=== PATIENT | female | born 1995 | race Caucasian/White ===

== ENCOUNTER 2017-08-18 11:13 | Emergency (ER) | payer OTHER ==
--- NOTE | 2017-08-18 11:28 | ER Document Report ---
ED Medical Screen (RME) - General Chief Complaint: Vaginal Bleeding Stated Complaint: VAGINAL BLEEDING,ABDOMINAL PAIN Time Seen by Provider: 08/18/17 11:24 Notes: Patient presents with vaginal bleeding and passing intermittent clots since Monday of this week. Formal ultrasound was performed yesterday, she states showed inconclusive results. She comes to this emergency department for further evaluation and wanting to know if she has a valid . She states that her bleeding is light at this time and denies any pain or concerns for GI vaginal smells or infection. Last menstrual period was approximately July 07, 2017. Discussed with nurse requesting formal ultrasound results from [facility] and beta hCG values that patient states were obtained. Will determine blood type and beta hCG levels for comparison while awaiting formal ultrasound results from outside hospital I have greeted and performed a rapid initial assessment of this patient. A comprehensive ED assessment and evaluation of the patient, analysis of test results and completion of the medical decision making process will be conducted by additional ED providers. PHYSICAL EXAMINATION: GENERAL: Well-appearing, well-nourished and in no acute distress. HEAD: Atraumatic, normocephalic. EYES: Pupils equal round extraocular movements intact, conjunctiva are normal. ENT: Nares patent NECK: Normal range of motion LUNGS: No respiratory distress Musculoskeletal: Normal range of motion NEUROLOGICAL: Normal speech, normal gait. PSYCH: Normal mood, normal affect. SKIN: Warm, Dry, normal turgor, no rashes or lesions noted. TRAVEL OUTSIDE OF THE [place] IN LAST 30 DAYS: No Past Medical History - Social History Chew tobacco use (# tins/day): No Frequency of alcohol use: None Drug Abuse: None Renal/ Medical History: Denies: Hx Peritoneal Dialysis
[2017-08-18 12:24] LABS: ABSOLUTE EOSINOPHILS # (AUTO) 0.2 10^3/uL (0.0-0.6); ABSOLUTE LYMPHOCYTES (AUTO) 2.4 10^3/uL (0.5-4.7); ABSOLUTE MONOCYTES (AUTO) 0.8 10^3/uL (0.1-1.4); ABSOLUTE NEUT (AUTO) 5.4 10^3/uL (1.7-8.2); BASOPHILS % (AUTO) 0.4 % (0-2); EOSINOPHILS % (AUTO) 1.7 % (0-6); HEMATOCRIT 37.7 % (36.0-47.0); HEMOGLOBIN 13.2 g/dL (12.0-15.5); MEAN CORPUSCULAR HEMOGLOBIN 29.1 pg (27.0-33.4); MEAN CORPUSCULAR HGB CONC 34.9 g/dL (32.0-36.0); MEAN CORPUSCULAR VOLUME 83 fl (80-97); MONOCYTES % (AUTO) 8.8 % (3-13); PLATELET COUNT 400 10^3/uL (150-450); RED BLOOD COUNT 4.53 10^6/uL (3.72-5.28); RED CELL DISTRIBUTION WIDTH 12.2 % (11.5-14.0); SEGMENTED NEUTROPHILS % (AUTO) 62.1 % (42-78); TOTAL CELLS COUNTED % (AUTO) 100 %; WHITE BLOOD COUNT 8.7 10^3/uL (4.0-10.5)
[2017-08-18 12:33] LABS: APPEARANCE,URINE CLEAR; BILIRUBIN,URINE NEGATIVE (NEGATIVE); COLOR,URINE YELLOW; GLUCOSE, URINE NEGATIVE (NEGATIVE); KETONES,URINE NEGATIVE (NEGATIVE); LEUKOCYTE ESTERASE,URINE NEGATIVE (NEGATIVE); NITRITE,URINE NEGATIVE (NEGATIVE); PROTEIN,URINE NEGATIVE (NEGATIVE); URINE SPECIFIC GRAVITY 1.024
[2017-08-18 12:40] LABS: ANION GAP 14 (5-19); BLOOD UREA NITROGEN 9 mg/dL (7-20); CALCIUM 9.4 mg/dL (8.4-10.2); CARBON DIOXIDE 23 mmol/L (22-30); CHLORIDE 106 mmol/L (98-107); GLUCOSE 94 mg/dL (75-110); POTASSIUM 4.4 mmol/L (3.6-5.0)
--- NOTE | 2017-08-18 13:03 | RADIOLOGY REPORT (SQ) ---
EXAM DESCRIPTION: U/S OB TRANSVAG W/DOPPLER COMPLETED DATE/TIME: 08/18/2017 12:48 pm REASON FOR STUDY: +preg vag bleed COMPARISON: None. TECHNIQUE: Transvaginal static and realtime grayscale images acquired of the pelvis. Additional ridge cted spectral and color Doppler images recorded. All images stored on PACs. BHCG: Pending. LIMITATIONS: None. FINDINGS: UTERUS: No visualized intrauterine . RIGHT ADNEXA: Ovary not identified. No adnexal free fluid. No adnexal masses. LEFT ADNEXA: Normal ovary with normal vascular flow. No adnexal free fluid. No adnexal masses. FREE FLUID: None. OTHER: No other significant finding. IMPRESSION: NO VISUALIZED INTRA- OR EXTRAUTERINE . bHCG LEVEL NOT AVAILABLE FOR CORRELATION WITH US FINDINGS. ECTOPIC CANNOT BE EXCLUDED. FOLLOW-UP ULTRASOUND AND SERIAL BHCG LEVELS STRONGLY RECOMMENDED TO ACCURATELY ASSESS STATU S. TECHNICAL DOCUMENTATION: JOB ID: [id number] [employer]- All Rights Reserved Reading location - IP/workstation name: [email or web address]
--- NOTE | 2017-08-18 13:30 | ER Document Report ---
ED General - General Chief Complaint: Vaginal Bleeding Stated Complaint: VAGINAL BLEEDING,ABDOMINAL PAIN Time Seen by Provider: 08/18/17 11:24 TRAVEL OUTSIDE OF THE [place] IN LAST 30 DAYS: No - HPI Patient complains to provider of: Vaginal bleeding Notes: Patient coming in for vaginal bleeding. Patient states she was told recently at [facility] that she may be having a miscarriage bleeding continued patient states that her beta level 24 hours ago was approximately 40 because of continued bleeding patient came into the ER today for further evaluation. Patient resting comfortably upon my evaluation denies any other medical issues denies fever chills nausea vomiting diarrhea. - Related Data Allergies/Adverse Reactions: No Known Allergies Allergy (Unverified 08/18/17 11:31) Past Medical History - Social History Smoking Status: Never Smoker Chew tobacco use (# tins/day): No Frequency of alcohol use: None Drug Abuse: None Family History: Reviewed & Not Pertinent Patient has suicidal ideation: No Patient has homicidal ideation: No Renal/ Medical History: Denies: Hx Peritoneal Dialysis Review of Systems - Review of Systems Constitutional: No symptoms reported EENT: No symptoms reported Cardiovascular: No symptoms reported Respiratory: No symptoms reported Gastrointestinal: No symptoms reported Genitourinary: No symptoms reported Female Genitourinary: Vaginal bleeding Musculoskeletal: No symptoms reported Skin: No symptoms reported Hematologic/Lymphatic: No symptoms reported Neurological/Psychological: No symptoms reported Physical Exam - Vital signs Vitals: Temp Pulse Resp BP Pulse Ox 98.4 F 83 18 113/63 99 08/18/17 11:25 08/18/17 11:25 08/18/17 11:25 08/18/17 11:25 08/18/17 11:25 Interpretation: Normal - General General appearance: Appears well, Alert - HEENT Head: Normocephalic, Atraumatic Eyes: Normal Pupils: PERRL - Respiratory Respiratory status: No respiratory distress Chest status: Nontender Breath sounds: Normal Chest palpation: Normal - Cardiovascular Rhythm: Regular Heart sounds: Normal auscultation Murmur: No - Abdominal Inspection: Normal Distension: No distension Bowel sounds: Normal Tenderness: Nontender Organomegaly: No organomegaly - Back Back: Normal, Nontender - Extremities General upper extremity: Normal inspection, Nontender, Normal color, Normal ROM , Normal temperature General lower extremity: Normal inspection, Nontender, Normal color, Normal ROM , Normal temperature, Normal weight bearing. No: Jorge's sign - Neurological Neuro grossly intact: Yes Cognition: Normal Orientation: AAOx4 Brandyn Coma Scale Eye Opening: Spontaneous Brandyn Coma Scale Verbal: Oriented Moon Coma Scale Motor: Obeys Commands Moon Coma Scale Total: 15 Speech: Normal Motor strength normal: LUE, RUE, LLE, RLE Sensory: Normal - Psychological Associated symptoms: Normal affect, Normal mood - Skin Skin Temperature: Warm Skin Moisture: Dry Skin Color: Normal Course - Re-evaluation Re-evalutation: 08/18/17 15:07 Beta is a 20 today with significant decrease from the patient's recent testing of 40. More likely patient is having a miscarriage. Will give the patient Bentyl for her abdominal cramps Ultram for pain recommend patient take Tylenol Motrin for other pain and follow-up in approximately 1 week to make sure there is resolution of her quant level to 0. - Vital Signs Vital signs: Temp Pulse Resp BP Pulse Ox 98.2 F 86 18 115/72 100 08/18/17 14:02 08/18/17 14:02 08/18/17 14:02 08/18/17 14:02 08/18/17 14:02 - Laboratory Result Diagrams: 08/18/17 11:56 08/18/17 11:56 Laboratory results interpreted by me: 08/18/17 08/18/17 11:56 11:56 Beta HCG, Quant 20.95 H Urine Urobilinogen 2.0 H Urine Ascorbic Acid 40 H Discharge - Discharge Clinical Impression: Miscarriage Condition: Good Disposition: HOME, SELF-CARE Instructions: Miscarriage ([facility]), Ob-Community Placement Worker Doctors Additional Instructions: Your beta hCG level today is 20. This seems to be decreasing from your beta hCG level reported at 40. this is consistent with a miscarriage. Please take the Bentyl for crampy abdominal pain. SHe may take the Ultram for severe pain. You may also take Tylenol and Motrin for pain control. Observe pelvic rest nothing inside the vagina including no toys no sex no tampons. Follow-up in 1 week for repeat beta-hCG testing. He may have this performed at her local [facility] office or he may return to the ER and go to outpatient laboratory testing to have this performed. For nausea and vomiting during I recomment: Start with 10-12.5 mg of pyridoxine (vitamin B6) three times a day for 2 days. If not fully effective, Increase to 12.5 mg of pyridoxine four times a day for 2 days. If not fully effective, Increase to 25 mg of pyridoxine three times a day for 2 days. If not fully effective, Continue 25 mg pyridoxine 3 times a day, and add 12.5 mg of doxylamine before bedtime each day for 2 days. If not fully effective, Continue 25 mg pyridoxine 3 times a day, and take 12.5 mg of doxylamine twice a day. If not fully effective, Continue 25 mg pyridoxine 3 times a day, and take 12.5 mg of doxylamine three times a day. If not fully effective, Continue 25 mg pyridoxine 3 times a day, and 12.5 mg of doxylamine 3 times a day , while adding Emetrol, one to two tablespoons (15-30 cc) taken once or twice a day as needed. (Emetrol is an [id number]-[id number] mixture of sugar syrups and phosphoric acid [phosphorylated carbohydrate solution]) that acts by soothing the actual wall of the gastrointestinal tract). If not fully effective, Consult with your doctor. Prescriptions: Dicyclomine HCl [Bentyl 20 mg Tablet] 20 mg PO QID #30 tablet Tramadol HCl [Ultram] 50 mg PO TID #20 tablet Forms: Follow-Up Laboratory Testing, Return to Work
[2017-08-18 14:09] VITALS: BP 115/72
== END 2017-08-18 14:09 | disposition home or self-care (01) ==
LOC: ER 11:13
DX: O03.9 Complete or unspecified spontaneous abortion without complication (principal)
CPT/HCPCS: 36415; 76817; 80048; 81001; 84702; 85025; 86900; 86901; 93976; 99284

== ENCOUNTER 2019-12-31 16:40 | Outpatient (CLI) | payer OTHER ==
[2019-12-31 17:42] LABS: APPEARANCE,URINE SLIGHTLY-CLOUDY; BILIRUBIN,URINE NEGATIVE (NEGATIVE); COLOR,URINE YELLOW; GLUCOSE, URINE NEGATIVE (NEGATIVE); KETONES,URINE NEGATIVE (NEGATIVE); LEUKOCYTE ESTERASE,URINE MODERATE (NEGATIVE); NITRITE,URINE NEGATIVE (NEGATIVE); PROTEIN,URINE 30 mg/dL (NEGATIVE)
[2019-12-31 18:03] LABS: URINE AMPHETAMINES SCREEN NEGATIVE; URINE BARBITURATES SCREEN NEGATIVE; URINE BENZODIAZEPINES SCREEN NEGATIVE; URINE COCAINE SCREEN NEGATIVE; URINE MARIJUANA (THC) SCREEN NEGATIVE; URINE METHADONE SCREEN NEGATIVE; URINE PHENCYCLIDINE SCREEN NEGATIVE
== END 2019-12-31 17:32 | disposition home or self-care (01) ==
LOC: LC 16:40
PROVIDERS: ATTEND Obstetrics & Gynecology
DX: O36.8130 Decreased fetal movements, third trimester, not applicable or unspecified (principal); Z88.6 Allergy status to analgesic agent; Z91.040 Latex allergy status; Z3A.38 38 weeks gestation of pregnancy
CPT/HCPCS: 59025; 80307; 81001

== ENCOUNTER 2020-01-13 19:01 | Inpatient (IN) | payer OTHER ==
[2020-01-13] MEDS ORDERED: MAG HYDROX/AL HYDROX/SIMETH SUSP 30 ML UDCUP PO PRN (19:19)
[2020-01-13] MEDS ORDERED: RINGERS SOLUTION,LACTATED 1,000 ML IV PRN (19:19)
[2020-01-13] MEDS ORDERED: OXYTOCIN/0.9 % SODIUM CHLORIDE 30 UNIT/500 ML RTUINJ IV PRN (19:19)
[2020-01-13] MEDS ORDERED: OXYTOCIN 10 UNIT/ML VIAL ONE (19:19)
[2020-01-13] MEDS ORDERED: OXYTOCIN/0.9 % SODIUM CHLORIDE 30 UNIT/500 ML RTUINJ ONE (19:19)
[2020-01-13] MEDS ORDERED: ZOLPIDEM TARTRATE 5 MG TABLET PO PRN (19:19)
[2020-01-13] MEDS ORDERED: MISOPROSTOL 0.2 MG TABLET ONE ×2 (19:19→19:20)
[2020-01-13] MEDS ORDERED: ACETAMINOPHEN 325 MG TABLET PO PRN (19:19)
[2020-01-13] MEDS ORDERED: RINGERS SOLUTION,LACTATED 300 ML IV ONE (19:19)
[2020-01-13] MEDS ORDERED: LIDOCAINE 1% INJ-PF (10 MG/ML) 30 ML SDV ONE (19:19)
[2020-01-13] MEDS ORDERED: DINOPROSTONE 10 MG VAGINAL INSERT.SR PV ONE (19:19)
[2020-01-13 19:40] LABS: APPEARANCE,URINE CLOUDY; BILIRUBIN,URINE NEGATIVE (NEGATIVE); COLOR,URINE YELLOW; GLUCOSE, URINE NEGATIVE (NEGATIVE); KETONES,URINE NEGATIVE (NEGATIVE); LEUKOCYTE ESTERASE,URINE SMALL (NEGATIVE); NITRITE,URINE NEGATIVE (NEGATIVE); PROTEIN,URINE 100 mg/dL (NEGATIVE); URINE SPECIFIC GRAVITY 1.028; UROBILINOGEN,URINE NEGATIVE mg/dL (<2.0)
[2020-01-13 20:05] LABS: ABSOLUTE EOSINOPHILS # (AUTO) 0.1 10^3/uL (0.0-0.6); ABSOLUTE LYMPHOCYTES (AUTO) 1.8 10^3/uL (0.5-4.7); ABSOLUTE MONOCYTES (AUTO) 0.7 10^3/uL (0.1-1.4); ABSOLUTE NEUT (AUTO) 7.6 10^3/uL (1.7-8.2); BASOPHILS % (AUTO) 0.4 % (0-2); EOSINOPHILS % (AUTO) 0.9 % (0-6); HEMATOCRIT 37.1 % (36.0-47.0); HEMOGLOBIN 12.9 g/dL (12.0-15.5); LYMPHOCYTES % (AUTO) 17.7 % (13-45); MEAN CORPUSCULAR HEMOGLOBIN 28.4 pg (27.0-33.4); MEAN CORPUSCULAR HGB CONC 34.7 g/dL (32.0-36.0); MEAN CORPUSCULAR VOLUME 82 fl (80-97); MONOCYTES % (AUTO) 6.9 % (3-13); PLATELET COUNT 305 10^3/uL (150-450); RED BLOOD COUNT 4.53 10^6/uL (3.72-5.28); RED CELL DISTRIBUTION WIDTH 15.6 % (11.5-14.0); SEGMENTED NEUTROPHILS % (AUTO) 74.1 % (42-78); TOTAL CELLS COUNTED % (AUTO) 100 %; WHITE BLOOD COUNT 10.2 10^3/uL (4.0-10.5)
[2020-01-13] MEDS ORDERED: ZOLPIDEM TARTRATE 5 MG TABLET ONE (20:23)
[2020-01-13] MEDS ORDERED: DINOPROSTONE 10 MG VAGINAL INSERT.SR ONE (20:23)
[2020-01-13 21:11] LABS: URINE AMPHETAMINES SCREEN NEGATIVE; URINE BARBITURATES SCREEN NEGATIVE; URINE BENZODIAZEPINES SCREEN NEGATIVE; URINE COCAINE SCREEN NEGATIVE; URINE MARIJUANA (THC) SCREEN NEGATIVE; URINE METHADONE SCREEN NEGATIVE; URINE PHENCYCLIDINE SCREEN NEGATIVE
[2020-01-13] MEDS ORDERED: ZOLPIDEM TARTRATE 5 MG TABLET PO ONE (21:41)
[2020-01-13] MEDS ORDERED: ONDANSETRON HCL INJ/PF 4 MG/2 ML SDV ONE (21:56)
[2020-01-13] MEDS ORDERED: ONDANSETRON HCL INJ/PF 4 MG/2 ML SDV IV ONE (22:00)
[2020-01-14] MEDS ORDERED: FENTANYL/BUPIVACAINE/NS/PF 300 MCG/150 ML RTUINJ EPI ONE (00:40)
[2020-01-14] MEDS ORDERED: ROPIVACAINE HCL 0.2% INJ/PF (2 MG/ML) 20 ML SDV ONE (00:40)
[2020-01-14] MEDS ORDERED: EPHEDRINE SULFATE INJ 50 MG/1 ML AMPULE ONE (00:40)
--- NOTE | 2020-01-14 06:00 | Admission Physical ---
Datetime Report Generated by CPN: 01/14/2020 05:59 CURRENT ADMISSION Chief Complaint: Scheduled Induction of Labor Indication for Induction: Post Dates Admit Impression : Postterm, Intrauterine ; Induction of Labor Admit Plan: Admit to Unit; Initiate Labor Induction Protocol ALLERGIES Medication Allergies: Yes Medication Allergies: hydrocodone (01/13/2020); acetaminophen (01/13/2020) Latex: No Latex Allergies OBSTETRICAL HISTORY EDC: 01/09/2020 00:00 : 2 Para: 0 Term: 0 : 0 SAB: 1 IAB: 0 Ectopic: 0 Livin Cesareans: 0 VBACs: 0 Multiple Births: 0 Gestational Diabetes: No Rh Sensitization: No Incompetent Cervix: No JUVENAL: No Infertility: No ART Treatment: No Uterine Anomaly: No IUGR: No Hx Previous C/S: No Macrosomia: No Hx Loss/Stillborn: No PIH: No Hx : No Placenta Previa/Abruption: No Depression/PP Depression: No PTL/PROM: No Post Hemorrhage: No Current Procedures: Ultrasound; NST Obstetrical History Comments: 2017, SAB G2- current SEE RECORDS Alcohol: No Marijuana : No Cocaine: No Other Illicit Drugs: No Cigarettes: Former Smoker. [id number] MEDICAL HISTORY Diabetes: No Blood Transfusion: No Pulmonary Disease (Asthma, TB): No Breast Disease: No Hypertension: No Field Project Manager Surgery: No Heart Disease: No Hosp/Surgery: Yes Autoimmune Disorder: No Anesthetic Complications: No Kidney Disease: No Abnormal Pap Smear: No Neuro/Epilepsy: No Psychiatric Disorders: No Other Medical Diseases: No Hepatitis/Liver Disease: No Significant Family History: No Varicosities/Phlebitis: No Trauma/Violence : No Thyroid Dysfunction: No Medical History Comments: tubes in ears in childhood INFECTIOUS HISTORY Gonorrhea: No Genital Herpes: No Chlamydia: No Tuberculosis: No Syphilis: No Hepatitis: No HIV/AIDS Exposure: No Rash or Viral Illness: No HPV: No PHYSICAL EXAM General: Normal HEENT: Normal Neurologic: Normal Thyroid: Normal Heart: Normal Lungs: Normal Breast: Normal Back: Normal Abdomen: Normal Genitourinary Exam: Normal Extremities: Normal DTRs: Normal Pelvic Type: Adequate Vital Signs: Reviewed VAGINAL EXAM Dilatation: 7 Effacement: 90 Station: -1 MEMBRANES Pooling: Negative Membranes: Intact FETUS A EGA: 40.5 Monitoring: External US FHR- Baseline: 120 Variability: Minimal - Undetectable to <=5bpm Accelerations: 10X10 Decelerations: None FHR Category: Category II Estimated Weight (gm): 3539 Presentation: Vertex Admit Comment: patient laboring from Cervidil placement and went to 7 cm @ 345 this AM. Has epidural now. will proceed with ROM and FSE placement PLANS FOR LABOR AND DELIVERY Labor and Delivery: None Pain Management: Epidural Feeding Preference: Breast Benefit of Breast Feed Discussed: Yes Circumcision: Yes INFORMED CONSENT Signature: with User ID: [email or web address]
--- NOTE | 2020-01-14 08:21 | L&D Progress Notes ---
PROGRESS NOTES Datetime Report Generated by CPN: 01/14/2020 08:21 PROGRESS NOTE Impression: Normal Progression of Labor Procedures: Sterile Vag Exam Plan: Continue Present Management; Anticipate Vaginal Delivery Plan Other: position changes encouraged Vital Signs : Reviewed; Within Normal Limits Comment: Assuming care of patient. IOL at 41 wks. s/p cervidil overnight. Pt comfortable. VE anterior lip/ -1. Feels OP. Encourage position changes and will labor down until making further descent. GBS negative. Attending MD is Dr Stoddard today VAGINAL EXAM Dilatation: 7 Effacement: 90 Station: -1 LAST VAGINAL EXAM-NURSING Nursing Exam Dilitation: anterior lip Nursing Exam Effacement: 100 Nursing Exam Station: 0 MEMBRANES Pooling: Negative Membranes: Intact FETUS A FHR - Baseline: 125 Monitoring: External US Variability: Moderate 6-25bpm Accelerations: Absent Decelerations: None : 40.5 Estimated Weight (gm): 3539 Presentation: Vertex SIGNATURE SIGNATURE: [id number];13,[id number] Assignment: Melanie Stoddard MD Signature: with User ID: [email or web address] : with User ID: [email or web address]
[2020-01-14] MEDS ORDERED: PSEUDOEPHEDRINE HCL 30 MG TABLET PO PRN (10:29)
[2020-01-14] MEDS ORDERED: DIBUCAINE 1% OINTMENT 28 GM TP PRN (10:29)
[2020-01-14] MEDS ORDERED: PROMETHAZINE HCL INJ 25 MG/1 ML VIAL IV PRN (10:29)
[2020-01-14] MEDS ORDERED: NA PHOS,M-B/NA PHOS,DI-BA (ADULT) 133 ML ENEMA PR PRN (10:29)
[2020-01-14] MEDS ORDERED: MAGNESIUM HYDROXIDE SUSP 30 ML UDCUP PO PRN (10:29)
[2020-01-14] MEDS ORDERED: OXYTOCIN/0.9 % SODIUM CHLORIDE 30 UNIT/500 ML RTUINJ IV PRN (10:29)
[2020-01-14] MEDS ORDERED: PROMETHAZINE HCL 25 MG TABLET PO PRN (10:29)
[2020-01-14] MEDS ORDERED: MEASLES,MUMPS&RUBELLA VACC/PF 0.5 ML VIAL SUBCUT PRN (10:29)
[2020-01-14] MEDS ORDERED: GLYCERIN/WITCH HAZEL LEAF 1 EACH MED..WIPE TP PRN (10:29)
[2020-01-14] MEDS ORDERED: BENZOCAINE/MENTHOL AEROSOL SPRAY 56 ML TOP PRN (10:29)
[2020-01-14] MEDS ORDERED: PROMETHAZINE HCL 25 MG SUPP.RECT PR PRN (10:29)
[2020-01-14] MEDS ORDERED: DIPHENHYDRAMINE HCL 25 MG CAPSULE PO PRN (10:29)
[2020-01-14] MEDS ORDERED: DIPH/PERTUSS(ACELL)/TETANUS VAC/PF 0.5 ML SYR (>=10YO) IM PRN (10:29)
--- NOTE | 2020-01-14 11:09 | Delivery Summary ---
Del Sum A-C Datetime Report Generated by CPN: 01/14/2020 11:09 DELIVERY PERSONNEL DELIVERY PERSONNEL: [id number] Nurse Director Of Home Care Hospice Certified:: Nieves Mccullough CNM Labor and Delivery Nurse:: Krystin Price RNresolution agent Nurse:: Sharee Vegas RN Nursery Nurse:: Hayde Petersen RN Nursery Nurse:: Paula Montoya RN Cargo Service Agent/OSORIO: Kate Landon CNA II MATERNAL INFORMATION Delivery Anesthesia: Epidural Medications After Delivery: Pitocin 30 Units in 500ml NS/D5W Delivery QBL: 125 Maternal Complications: None Provider Comments: of VMI, delivered OA, then to MYRNA. vigorous and crying, placed on pts abdoman in stable condition. Cord around baby's ankle noted. FSE fell off spontaneously at delivery. Bulb suctioned. Cord clamped and cut after one minute. Cord blood collected. Placenta S/C/I, IV Pitocin infusing. ff w/ decreased lochia. 1st degree laceration repaired. Mother and baby in stable condition. Apgars 8,9. QBL 125 ml. LABOR SUMMARY EDC: 01/09/2020 00:00 No. Babies in Womb: 1 Attempted: No Labor Anesthesia: Epidural LABOR INFORMATION Reason for Induction: Post Dates Onset of Labor: 01/13/2020 22:05 Complete Dilatation: 01/14/2020 09:13 Cervical Ripening Agents: Cervidil Oxytocin: N/A Group B Beta Strep: negative (Annotations: Data stored by CPN on behalf of user) Antibiotics # of Doses: n/a Name of Antibiotic Given: n/a Steroids Given: None Reason Steroids Not Administered: Not Applicable MEMBRANES Membranes Rupture Method: Artificial Rupture of Membranes: 01/14/2020 06:00 Length of Rupture (hr): 4.17 Amniotic Fluid Color: Clear Amniotic Fluid Amount: Scant Amniotic Fluid Odor: Normal STAGES OF LABOR Stage 1 hr: 11 Stage 1 min: 8 Stage 2 hr: 0 Stage 2 min: 57 Stage 3 hr: 0 Stage 3 min: 4 Total Time in Labor hr: 12 Total Time in Labor min: 9 VAGINAL DELIVERY Episiotomy: None Laceration #1: Vaginal Laceration Extension #1: First Degree Laceration Repair: Yes Laceration Repair Note: 1st degree vaginal repaired in the usual fashion with 3.0 vicryl under epidural anesthesia Sponge Count Correct: Yes Sharps Count Correct: Yes CSECTION DELIVERY Primary Indication: N/A Secondary Indication: N/A CSection Incidence: N/A Labor: N/A Elective: N/A CSection Incision: N/A BABY A INFORMATION Delivery Date/Time: 01/14/2020 10:10 Method of Delivery: Vaginal Nurse Controlled Delivery: No Born in Route : No : N/A Forceps: N/A Vacuum Extraction: N/A Shoulder Dystocia : No PRESENTATION/POSITION BABY A Presentation: Cephalic Cephalic Presentation: Vertex Vertex Position: Left Occipital Anterior Breech Presentation: N/A PLACENTA INFORMATION BABY A Placenta Delivery Time : 01/14/2020 10:14 Placenta Method of Delivery: Spontaneous Placenta Status: Delivered SCORES BABY A Heart Rate 1 min: >100 bpm Resp Effort 1 min: Good Cry Reflex Irritability 1 min: Cough or Sneeze or Pulls Away Muscle Tone 1 min: Active Motion Color 1 min: Blue/Pale Resuscitation Effort 1 min: Tactile Stimulation SCORE 1 MIN: 8 Heart Rate 5 min: >100 bpm Resp Effort 5 min: Good Cry Reflex Irritability 5 min: Cough or Sneeze or Pulls Away Muscle Tone 5 min: Active Motion Color 5 min: Body Commercial Point, Extremities Blue SCORE 5 MIN: 9 INFANT INFORMATION BABY A Gestational Age at Delivery: 40.5 Gestational Status: Full Term- 39- 40.6 Weeks Outcome : Liveborn Condition : Stable Infant Sex: Male IDENTIFICATION BABY A Infant Verification Date/Time: 01/14/2020 10:23 ID Band Number: [id number] Mother's Name Verified: Yes Infant RN Verifying : MMobley,RN Additional Verifying Personnel: Tarasshine,CNA2 WEIGHT/LENGTH BABY A Birthweight (gm): 3750 Weight (lb): 8 Weight (oz): 4 Length (in): 20.50 Infant Length (cm): 52.07 CORD INFORMATION BABY A No. Cord Vessels: 3 Nuchal Cord : N/A Cord Blood Taken: Yes-For Eval (Mom's Blood Type - or O+) Suction: Mouth ASSESSMENT BABY A Complications: None Physical Findings at Delivery: Within Normal Limits Respirations: Appears Normal Skin to Skin: Yes Skin to Skin Time (min): 30 Real Estate Director/ALS Called : No Infant Care By: Hayde Petersen RN Transferred To: [facility] BABY B INFORMATION : N/A SIGNATURES Assignment: Melanie Stoddard MD Signature: with User ID: Ovidio : with User ID: [email or web address]
--- NOTE | 2020-01-14 11:09 | Birth Certificate Data ---
Cert Data Datetime Report Generated by CPFinn: 01/14/2020 11:09 CERTIFICATE DATA 47a. Care: Yes (12/31/2019 17:00:KHALIF Martinez) 47b. Date of First Visit: 05/20/2019 00:00 (12/31/2019 17:00:KHALIF Martinez) 47c. Date of Last Visit: 01/09/2020 00:00 (12/31/2019 17:00:KHALIF Martinez) 47d. Number of Visits: 14 (12/31/2019 17:00:KHALIF Martinez) 48a. Number of Prev Live Births: 0 (12/31/2019 17:00:KHALIF Martinez) 48b. Now Livin (12/31/2019 17:00:Krystin Price RN) 48c. Live Births Now : 0 (12/31/2019 17:00:QS system process) 48e. Losses: 1 (12/31/2019 17:00:KHALIF Martinez) 48f. Date of Last Preg Loss: 07/30/2017 00:00 (12/31/2019 17:00:Marlene Camp, RNC) RISK FACTORS IN THIS 49a. Diabetes: No (12/31/2019 17:00:Morelia Gallegos RN) 49b. Hypertension: No (12/31/2019 17:00:Morelia Gallegos RN) 49c. Previous Births: 0 (12/31/2019 17:00:Krystin Price RN) 49d. Stillborns: No (12/31/2019 17:00:Morelia Gallegos RN) 49d. IUGR: No (12/31/2019 17:00:Morelia Gallegos RN) 49e. Infertility Treatment: No (12/31/2019 17:00:Morelia Gallegos RN) 49f. Previous Cesareans: 0 (12/31/2019 17:00:Marlene Camp, RNC) Mother's Height 50b. Height Inches: 63 (01/14/2020 10:32:QS system process) Mother's Weight 51a. Pre- Weight (lbs): 213 (12/31/2019 17:00:Morelia Gallegos RN) 51b. Weight at Delivery (lbs): 229 (01/14/2020 10:32:QS system process) Infections Present/Treated 53a. Gonorrhea: No (12/31/2019 17:00:Morelia Gallegos RN) Results this Hospital Visit : Negative (12/31/2019 17:00:Morelia Gallegos RN) 53b. Syphilis: No (12/31/2019 17:00:Morelia Gallegos RN) Results this Hospital Visit: NONREACTIVE (01/13/2020 19:49:QS system process) 53c. Chlamydia: No (12/31/2019 17:00:Morelia Gallegos RN) Results this Hospital Visit: Negative (12/31/2019 17:00:Morelia Gallegos RN) 53d. Hepatitis B: No (12/31/2019 17:00:Morelia Gallegos RN) Results this Hospital Visit: Negative (12/31/2019 17:00:Morelia Gallegos RN) 53e. Hepatitis C: Negative (12/31/2019 17:00:Morelia Gallegos RN) 53h. Mother Tested for HBsAG: Yes (12/31/2019 17:00:Morelia Gallegos RN) 53i. Date Tested: 05/20/2019 00:00 (12/31/2019 17:00:Morelia Gallegos RN) 53j. Test Result: Negative (12/31/2019 17:00:Morelia Gallegos RN) Obstetric Procedures 54a, b, c. Obstetric Procedures: Ultrasound; NST (12/31/2019 17:00:Morelia Gallegos RN) Onset of Labor 56a. PROM >12 Hrs: 4.17 (12/31/2019 17:00:QS system process) 56b. Precipitous Labor <3 Hrs: 12 (12/31/2019 17:00:QS system process) 56c. Prolonged Labor > 20 Hrs: 12 (12/31/2019 17:00:QS system process) 57a. Induction of Labor: N/A (12/31/2019 17:00:Morelia Gallegos RN) 57a. Induction of Labor: Cervidil (01/13/2020 20:37:Morelia Gallegos RN) 57c. Non-Vertex Presentation A: Vertex (12/31/2019 17:00:Krystin Price RN) 57d. Steroids - Lung Mat: None (12/31/2019 17:00:Morelia Gallegos RN) 57d. Steroids - Lung Mat: Not Applicable (12/31/2019 17:00:Morelia Gallegos RN) 57g. Moderate/Heavy Meconium: Clear (01/14/2020 06:00:Morelia Gallegos RN) 57h. Intolerance of Labor: N/A (12/31/2019 17:00:Krystin Price RN) : N/A (12/31/2019 17:00:Krystin Price RN) 57i. Epidural/Spinal Anesthesia: Epidural (12/31/2019 17:00:Morelia Gallegos RN) Method of Delivery 58a. Forceps - Unsuccessful A: N/A (12/31/2019 17:00:Krystin Price RN) 58b. Vacuum - Unsuccessful A: N/A (12/31/2019 17:00:Krystin Price RN) 58c. Presentation at 58c. Presentation at - A : Vertex (12/31/2019 17:00:Krystin Price RN) 58c. Presentation at - A : N/A (12/31/2019 17:00:Krystin Price RN) 58c. Presentation at - A : Cephalic (12/31/2019 17:00:Morelia Gallegos RN) Final Route and Method of Del 58d. Baby A Route/Delivery: Vaginal (01/14/2020 10:10:Jennifer Jackson RN) 58e. Trial of Labor Attempted: No (12/31/2019 17:00:Morelia Gallegos RN) 58e. Trial of Labor Attempted A: N/A (12/31/2019 17:00:Morelia Gallegos RN) 58e. Trial of Labor Attempted B: N/A (12/31/2019 17:00:Morelia Gallegos RN) Maternal Morbidity 59b. 3rd or 4th Degree Lacs: Vaginal (12/31/2019 17:00:Nieves Mccullough CNM) 59b. 3rd or 4th Degree Lacs: First Degree (12/31/2019 17:00:Krystin Price RN) Birthweight Baby A: 3750 (12/31/2019 17:00:Krystin Price RN) 60a. Pounds : 8 (12/31/2019 17:00:QS system process) 60b. Ounces: 4 (12/31/2019 17:00:QS system process) 61. GA at Delivery Baby A: 40.5 (12/31/2019 17:00:Morelia Gallegos, RN) : Full Term- 39- 40.6 Weeks (12/31/2019 17:00:QS system process) 62a. 5 Minute Baby A: 9 (12/31/2019 17:00:QS system process)
[2020-01-14] MEDS ORDERED: IBUPROFEN 800 MG TABLET PO SCH (11:30)
[2020-01-14] MEDS: IBUPROFEN 800 MG TABLET PO SCH ×2 (15:31→21:50)
[2020-01-14] MEDS: DOCUSATE SODIUM 100 MG CAPSULE PO SCH (18:03)
[2020-01-14] MEDS: FAMOTIDINE 20 MG TABLET PO SCH (21:50)
[2020-01-15] MEDS: IBUPROFEN 800 MG TABLET PO SCH ×3 (06:11→22:27)
[2020-01-15 06:33] LABS: HEMATOCRIT 32.2 % (36.0-47.0); HEMOGLOBIN 11.3 g/dL (12.0-15.5); MEAN CORPUSCULAR HEMOGLOBIN 28.7 pg (27.0-33.4); MEAN CORPUSCULAR VOLUME 82 fl (80-97); PLATELET COUNT 238 10^3/uL (150-450); RED BLOOD COUNT 3.93 10^6/uL (3.72-5.28); RED CELL DISTRIBUTION WIDTH 15.4 % (11.5-14.0)
[2020-01-15] MEDS: FERROUS SULFATE 325 MG TABLET PO SCH (09:58)
[2020-01-15] MEDS: SENNOSIDES/DOCUSATE 8.6-50 MG 1 EACH TABLET PO SCH (09:58)
[2020-01-15] MEDS: DOCUSATE SODIUM 100 MG CAPSULE PO SCH ×2 (09:58→17:34)
[2020-01-15] MEDS: FAMOTIDINE 20 MG TABLET PO SCH ×2 (09:58→22:27)
[2020-01-15] MEDS ORDERED: PRENATAL VITAMIN W DHA CAPSULE PO SCH (10:00)
--- NOTE | 2020-01-15 14:59 | PDOC PROGRESS REPORT ---
Subjective-OB Progress Note for:: 01/15/20 Subjective: 24yo s/p ppd 1. Ambulating, voiding and without difficulty. NO concerns today, reports pain well controlled with medication. Physical Exam (OB) Vital Signs: Temp Pulse Resp BP Pulse Ox 98.1 F 76 18 130/78 H 100 01/15/20 08:45 01/15/20 08:00 01/15/20 08:00 01/15/20 08:00 01/15/20 08:00 Intake & Output 01/14/20 01/15/20 01/16/20 06:59 06:59 06:59 Intake Total 1200 100 Balance 1200 100 Weight 103.7 kg - General General Appearance: Appears well In distress: None - PIH/Pre-Eclampsia DTR's: 1 + Clonus: Negative Headache: Absent Epigastric Pain: No Visual Changes: No - Maternal Morbidity 59. Maternal Morbidity (serious complications experinced by the mother associated with labor and delivery: None of the above - Episiotomy/Laceration Site Condition: Well Approximated - Lochia Lochia Amount: Small 10-25 ml Lochia Color: Serosa/Brown - Abdomen Description: Firm Hernia Present: No Fundal Description: Firm Fundal Height: u/u - u/2 - Respiratory Respiratory Status: No respiratory distress - Extremities Upper extremity: Normal inspection Lower extremities: Normal inspection - Neurological Cognition: Normal Orientation: AAOx4 - Psychological Associated symptoms: Normal affect, Normal mood Objective-Diagnostic Laboratory: 01/15/20 06:17 01/15/20 06:17 WBC 11.0 H RBC 3.93 Hgb 11.3 L Hct 32.2 L MCV 82 MCH 28.7 MCHC 35.0 RDW 15.4 H Plt Count 238 Assessment and Plan(PN) - Assessment and Plan (1) Obstetric vaginal laceration Qualifiers: Perineal laceration presence: without perineal laceration Qualified Code(s): O71.4 - Obstetric high vaginal laceration alone Is this a current diagnosis for this admission?: Yes Plan: continue to monitor for s/s of infection (2) Encounter for induction of labor Is this a current diagnosis for this admission?: Yes Plan: delivered (3) (normal spontaneous vaginal delivery) Is this a current diagnosis for this admission?: Yes Plan: routine pp care - Time Spent with Patient Time with patient: Less than 15 minutes Medications reviewed and adjusted accordingly: Yes - Disposition Anticipated Discharge Disposition: Home, Self Care Anticipated Discharge Timeframe: within 24 hours
[2020-01-16] MEDS: IBUPROFEN 800 MG TABLET PO SCH ×2 (05:52→14:02)
[2020-01-16 08:16] VITALS: BP 101/56
--- NOTE | 2020-01-16 09:20 | PDOC DISCHARGE SUMMARY ---
Impression - Admit/DC Date/PCP Admission Date/Primary Care Provider: 01/13/20 19:01 NAGA DEVI MD Discharge Date: 01/16/20 - Discharge Diagnosis (1) 41 weeks gestation of Is this a current diagnosis for this admission?: Yes (2) Encounter for induction of labor Is this a current diagnosis for this admission?: Yes (3) (normal spontaneous vaginal delivery) Is this a current diagnosis for this admission?: Yes (4) Obstetric vaginal laceration Is this a current diagnosis for this admission?: Yes - Additional Information Resuscitation Status: Full Code Discharge Diet: Regular Discharge Activity: Balance Activity w/Rest, Pelvic Rest Referrals: NAGA DEVI MD [Primary Care Provider] - Prescriptions: Ibuprofen [Motrin 800 mg Tablet] 800 mg PO Q8HP PRN #60 tablet PRN Reason: Home Medications: Vit Calc,Iron,Folic [ Vitamins] 1 tab PO DAILY 08/18/17 Ibuprofen [Motrin 800 mg Tablet] 800 mg PO Q8HP PRN #60 tablet 01/16/20 HPI Gestational Age: 40.5 Reason(s) for Admission: Induction of Labor Procedures: NST Intrapartum Procedure(s): Spontaneous Vaginal Delivery Complication(s): Laceration-Perineal Laceration-Degree: 1st Hospital Course 59. Maternal Morbidity (serious complications experinced by the mother associated with labor and delivery: None of the above Results Laboratory Results: WBC 11.0 10^3/uL (4.0-10.5) H 01/15/20 06:17 RBC 3.93 10^6/uL (3.72-5.28) 01/15/20 06:17 Hgb 11.3 g/dL (12.0-15.5) L 01/15/20 06:17 Hct 32.2 % (36.0-47.0) L 01/15/20 06:17 MCV 82 fl (80-97) 01/15/20 06:17 MCH 28.7 pg (27.0-33.4) 01/15/20 06:17 MCHC 35.0 g/dL (32.0-36.0) 01/15/20 06:17 RDW 15.4 % (11.5-14.0) H 01/15/20 06:17 Plt Count 238 10^3/uL (150-450) 01/15/20 06:17 Lymph % (Auto) 17.7 % (13-45) 01/13/20 19:49 [place] % (Auto) 6.9 % (3-13) 01/13/20 19:49 Eos % (Auto) 0.9 % (0-6) 01/13/20 19:49 Baso % (Auto) 0.4 % (0-2) 01/13/20 19:49 Absolute Neuts (auto) 7.6 10^3/uL (1.7-8.2) 01/13/20 19:49 Absolute Lymphs (auto) 1.8 10^3/uL (0.5-4.7) 01/13/20 19:49 Absolute Monos (auto) 0.7 10^3/uL (0.1-1.4) 01/13/20 19:49 Absolute Eos (auto) 0.1 10^3/uL (0.0-0.6) 01/13/20 19:49 Absolute Basos (auto) 0.0 10^3/uL (0.0-0.2) 01/13/20 19:49 Seg Neutrophils % 74.1 % (42-78) 01/13/20 19:49 POC Glucose mg/dL (70-110) 01/14/20 09:49 Urine Color YELLOW 01/13/20 19:10 Urine Appearance CLOUDY 01/13/20 19:10 Urine pH 6.0 (5.0-9.0) 01/13/20 19:10 Ur Specific [place] 1.028 01/13/20 19:10 Urine Protein 100 mg/dL (NEGATIVE) H 01/13/20 19:10 Urine Glucose (UA) NEGATIVE mg/dL (NEGATIVE) 01/13/20 19:10 Urine Ketones NEGATIVE mg/dL (NEGATIVE) 01/13/20 19:10 Urine Blood MODERATE (NEGATIVE) H 01/13/20 19:10 Urine Nitrite NEGATIVE (NEGATIVE) 01/13/20 19:10 Urine Bilirubin NEGATIVE (NEGATIVE) 01/13/20 19:10 Urine Urobilinogen NEGATIVE mg/dL (<2.0) 01/13/20 19:10 Ur Leukocyte Esterase SMALL (NEGATIVE) H 01/13/20 19:10 Urine Ascorbic Acid NEGATIVE (NEGATIVE) 01/13/20 19:10 Urine Opiates Screen NEGATIVE 01/13/20 19:10 Urine Methadone Screen NEGATIVE 01/13/20 19:10 Ur Barbiturates Screen NEGATIVE 01/13/20 19:10 Ur Phencyclidine Scrn NEGATIVE 01/13/20 19:10 Ur Amphetamines Screen NEGATIVE 01/13/20 19:10 U Benzodiazepines Scrn NEGATIVE 01/13/20 19:10 Urine Cocaine Screen NEGATIVE 01/13/20 19:10 U Marijuana (THC) Screen NEGATIVE 01/13/20 19:10 RPR NONREACTIVE (NONREACTIVE) 01/13/20 19:49 Blood Type O POSITIVE 01/13/20 19:49 Antibody Screen NEGATIVE 01/13/20 19:49 Plan Plan of Treatment: f/u at [facility] for PPC[facility] Time Spent: Less than 30 Minutes
[2020-01-16] MEDS: FERROUS SULFATE 325 MG TABLET PO SCH (10:07)
[2020-01-16] MEDS: FAMOTIDINE 20 MG TABLET PO SCH (10:07)
[2020-01-16] MEDS: DOCUSATE SODIUM 100 MG CAPSULE PO SCH (10:08)
[2020-01-16] MEDS: SENNOSIDES/DOCUSATE 8.6-50 MG 1 EACH TABLET PO SCH (10:08)
[2020-01-16] MEDS ORDERED: DIPH/PERTUSS(ACELL)/TETANUS VAC/PF 0.5 ML SYR (>=10YO) IM PRN (13:30)
[2020-01-16] MEDS ORDERED: PROMETHAZINE HCL INJ 25 MG/1 ML VIAL IV PRN (13:30)
[2020-01-16] MEDS ORDERED: MEASLES,MUMPS&RUBELLA VACC/PF 0.5 ML VIAL SUBCUT PRN (13:30)
== END 2020-01-16 17:00 | disposition home or self-care (01) | DRG 807 ==
LOC: LR 19:01 → 2S 01-14 12:22
PROVIDERS: ADMIT Obstetrics & Gynecology; ATTEND Obstetrics & Gynecology
PROC: 10E0XZZ Delivery of Products of Conception, External Approach (ICD-10-PCS; principal; 2020-01-14)
PROC: 0HQ9XZZ Repair Perineum Skin, External Approach (ICD-10-PCS; 2020-01-14)
PROC: 10907ZC Drainage of Amniotic Fluid, Therapeutic from Products of Conception, Via Natural or Artificial Opening (ICD-10-PCS; 2020-01-14)
DX: O48.0 Post-term pregnancy (principal); Z37.0 Single live birth; O70.0 First degree perineal laceration during delivery; Z88.6 Allergy status to analgesic agent; Z87.891 Personal history of nicotine dependence; Z3A.41 41 weeks gestation of pregnancy
CPT/HCPCS: 1967; 36415; 80307; 81005; 82962; 85025; 85027; 86592; 86850; 86900; 86901; 94760; J2405; J2590; J2795; J3010; J3490